=== PATIENT | female | born 1950 | race African-American/Black ===

== ENCOUNTER 2021-07-07 17:18 | Observation (INO) | payer SELFPAY ==
[2021-07-07] MEDS ORDERED: LACTATED RINGERS SOLUTION 1,000 ML IV STA (18:00)
[2021-07-07] MEDS ORDERED: ACETAMINOPHEN 1000 MG/100 ML VIAL (NON FORMULARY) IVPB ONE (18:00)
[2021-07-07] MEDS ORDERED: ACETAMINOPHEN INJECTION 100 ML IVPB ONE (19:24)
[2021-07-07 20:18] LABS: BASO % 0.7 % (0-2.0); EOS % 0.1 % (0-4.5); HEMATOCRIT 34.8 % (32.4-45.2); HEMOGLOBIN 11.7 GM/dL (10.7-15.3); LYMPH % 45.1 % (8-40); MCH 29.4 pg (25.7-33.7); MCHC 33.7 g/dl (32.0-36.0); MEAN CELL VOLUME 87.4 fl (80-96); MEAN PLT VOLUME 9.3 fl (7.5-11.1); MONO % 15.9 % (3.8-10.2); NEUT % 38.2 % (42.8-82.8); PLATELET COUNT 219 10^3/uL (134-434); RBC 3.98 M/mm3 (3.60-5.2); RDW 13.2 % (11.6-15.6); WHITE BLOOD COUNT 5.2 K/mm3 (4.0-10.0)
[2021-07-07 20:27] LABS: INR 1.18 (0.83-1.09); PROTHROMBIN TIME (PATIENT) 14.2 SEC (9.7-13.0)
[2021-07-07 20:29] LABS: ACTIVATED PTT 30.2 SECONDS (25.2-36.5)
[2021-07-07 20:38] LABS: CHLORIDE 105 mmol/L (98-107); SODIUM 140 mmol/L (136-145)
[2021-07-07 20:40] LABS: CALCIUM 8.2 mg/dL (8.5-10.1)
[2021-07-07 20:41] LABS: ALBUMIN 3.5 g/dl (3.4-5.0); ANION GAP 7 MMOL/L (8-16); BLOOD UREA NITROGEN 11.5 mg/dL (7-18); CO2 28 mmol/L (21-32); GLUCOSE,RANDOM 106 mg/dL (74-106)
[2021-07-07 20:43] LABS: BILIRUBIN,DIRECT 0.1 mg/dL (0.0-0.2)
[2021-07-07 20:44] LABS: CREATININE 0.9 mg/dL (0.55-1.3); SGOT/AST 28 U/L (15-37); SGPT/ALT 23 U/L (13-61)
[2021-07-07 20:45] LABS: LDH 219 U/L (84-246)
[2021-07-07 20:46] LABS: BILIRUBIN,TOTAL < 0.1 mg/dL (0.2-1)
[2021-07-07 20:47] LABS: ALK PHOS 84 U/L (45-117)
[2021-07-07 23:02] LABS: ANISOCYTOSIS 0; MACROCYTOSIS 0; PLATELET ESTIMATE NORMAL
[2021-07-08 02:26] VITALS: BMI 31.4
[2021-07-08] MEDS: INSULIN SLIDING SCALE (NOVOLOG) 1 VIAL SQ SCH ×2 (06:50→11:44)
[2021-07-08 09:40] LABS: HEMATOCRIT 35.1 % (32.4-45.2); MCH 29.5 pg (25.7-33.7); MCHC 34.2 g/dl (32.0-36.0); MEAN CELL VOLUME 86.5 fl (80-96); MEAN PLT VOLUME 9.1 fl (7.5-11.1); PLATELET COUNT 212 10^3/uL (134-434); RBC 4.06 M/mm3 (3.60-5.2); RDW 13.5 % (11.6-15.6); WHITE BLOOD COUNT 5.1 K/mm3 (4.0-10.0)
[2021-07-08] MEDS ORDERED: ENOXAPARIN NA (PORCINE) 40 MG/0.4 ML DISP.SYRIN SQ SCH (10:00)
[2021-07-08 10:07] LABS: CALCIUM 8.5 mg/dL (8.5-10.1)
[2021-07-08 10:08] LABS: BLOOD UREA NITROGEN 8.5 mg/dL (7-18)
[2021-07-08 10:09] LABS: CREATININE 0.7 mg/dL (0.55-1.3)
[2021-07-08 10:10] LABS: MAGNESIUM 2.2 mg/dL (1.8-2.4); PHOSPHOROUS 5.3 mg/dL (2.5-4.9)
[2021-07-08 10:25] LABS: ANISOCYTOSIS 0; HELMET CELLS 0; HOWELL-JOLLY BODIES 0; MACROCYTOSIS 0; OVALOCYTE 0; PLATELET ESTIMATE NORMAL; ROULEAU 0; SICKELED CELLS 0; TARGET CELLS 0; TEAR DROP CELLS 0; TOXIC GRANULATION 0
[2021-07-08 11:23] VITALS: BP 131/68; PULSE 70; TEMP 98.3
== END 2021-07-08 12:47 | disposition home or self-care (01) ==
LOC: JER 17:18 → JERBED 22:10 → J6S 07-08 02:08
PROVIDERS: ADMIT Internal Medicine
PROC: 3E033NZ Introduction of Analgesics, Hypnotics, Sedatives into Peripheral Vein, Percutaneous Approach (ICD-10-PCS; principal; 2021-07-07)
PROC: 3E023GC Introduction of Other Therapeutic Substance into Muscle, Percutaneous Approach (ICD-10-PCS; 2021-07-07)
PROC: 3E0337Z Introduction of Electrolytic and Water Balance Substance into Peripheral Vein, Percutaneous Approach (ICD-10-PCS; 2021-07-07)
DX: U07.1 COVID-19 (principal); J12.82 Pneumonia due to coronavirus disease 2019; E11.9 Type 2 diabetes mellitus without complications; E66.9 Obesity, unspecified; Z68.31 Body mass index [BMI] 31.0-31.9, adult; R09.02 Hypoxemia; Z29.9 Encounter for prophylactic measures, unspecified
CPT/HCPCS: 36415; 71045-TC-FY; 80048; 80053; 82248; 82550; 82553; 82728; 82962; 83605; 83615; 83735; 84100; 84484; 85025; 85379; 85610; 85730; 86140; 87040; 93005; 93010; 94761; 96361; 96372; 96374; 99285-25; C9803; G0378; J0131; U0003; U0005

== ENCOUNTER 2021-07-08 12:04 | Emergency (ER) | payer SELFPAY ==
[2021-07-08 12:09] VITALS: TEMP 98; BMI 31.2
[2021-07-08] MEDS ORDERED: CASIRIVIMAB/IMDEVIMAB 10 ML in SODIUM CHLORIDE 100 ML IVPB ONE (12:52)
[2021-07-08 15:22] VITALS: BP 140/67; PULSE 78
== END 2021-07-08 15:22 | disposition home or self-care (01) ==
LOC: JER 12:04
PROC: 3E033GC Introduction of Other Therapeutic Substance into Peripheral Vein, Percutaneous Approach (ICD-10-PCS; principal; 2021-07-08)
DX: U07.1 COVID-19 (principal)
CPT/HCPCS: 99284-25; M0240; Q0240